=== PATIENT | male | born 1950 | race Caucasian/White ===

== ENCOUNTER 2020-07-21 19:55 | Inpatient (IN) | payer MEDICARE, MEDICAID ==
[~2020-07-21] VITALS: Ht 154.9 cm; Wt 68.0 kg
[2020-07-21] MEDS ORDERED: MORPHINE SULFATE 4 MG/ML CPJ (NOT FOR IM USE) IV STA (20:37)
[2020-07-21 21:10] LABS: BASOPHILS % 0.3 % (0.0-2.0); HEMATOCRIT. 42.8 % (42.0-52.0); HEMOGLOBIN. 14.8 g/dL (14.0-18.0); LYMPHOCYTES % 15.3 % (20.0-50.0); MEAN CORPUSCULAR HEMOGLOBIN 28.9 pg (28.0-32.0); MEAN CORPUSCULAR VOLUME 83.6 fL (80.0-94.0); MEAN PLATELET VOLUME 9.7 fl (7.4-10.4); MONOCYTES % 5.1 % (2.0-8.0); NEUTROPHILS % 79.3 % (40.0-76.0); PLATELET 167 x1000/uL (130-400); RED BLOOD CELL COUNT 5.13 mill/uL (4.7-6.1); RED CELL DISTRIBUTION WIDTH 14.8 % (11.6-14.6)
[2020-07-21 21:24] LABS: CHLORIDE 107 mEq/L (98-107)
[2020-07-21] MEDS ORDERED: IOHEXOL-300 100 ML BOTTLE ONE (22:58)
[2020-07-21] MEDS ORDERED: KCL 20MEQ/100ML PREMIX 100 ML IV ONE (23:15)
[2020-07-21] MEDS ORDERED: MORPHINE SULFATE 4 MG/ML CPJ (NOT FOR IM USE) IV ONE (23:15)
[2020-07-21] MEDS ORDERED: CEFTRIAXONE 1 G PREMIX 50 ML IV ONE (23:15)
[2020-07-22 00:06] LABS: CLARITY URINE CLEAR (CLEAR); COLOR URINE YELLOW (YELLOW); KETONES URINE NEGATIVE (NEGATIVE); LEUKOCYTE ESTERASE URINE 3+ (NEGATIVE); NITRITE URINE NEGATIVE (NEGATIVE); OCCULT BLOOD URINE 1+ (NEGATIVE); PROTEIN URINE NEGATIVE (NEGATIVE); SPECIFIC GRAVITY URINE 1.019 (1.005-1.030); UROBILINOGEN URINE 0.2 E.U./dL (0.2-1.0)
[2020-07-22] MEDS ORDERED: ZOLPIDEM TARTRATE 5MG TABLET PO PRN (02:15)
[2020-07-22] MEDS ORDERED: DIPHENHYDRAMINE 50MG/ML VIAL IV PRN (02:15)
[2020-07-22] MEDS ORDERED: CLONIDINE 0.1MG TABLET PO PRN (02:15)
[2020-07-22] MEDS ORDERED: CEFTRIAXONE 1 G PREMIX 50 ML IV SCH (02:15)
[2020-07-22] MEDS ORDERED: ACETAMINOPHEN 325MG TABLET PO PRN ×2 (02:15)
[2020-07-22] MEDS ORDERED: MAGNESIUM/ALUMINUM HYDROXIDE/SIMETHICONE 30ML UDC PO PRN (02:15)
[2020-07-22] MEDS ORDERED: ONDANSETRON HCL 4MG/2ML INJ IV PRN (02:15)
[2020-07-22] MEDS ORDERED: MORPHINE SULFATE 4 MG/ML CPJ (NOT FOR IM USE) IV PRN (02:15)
[2020-07-22] MEDS: KETOROLAC 30MG/ML VIAL IV PRN ×2 (07:38→23:37)
[2020-07-22 08:40] VITALS: BP 136/69
[2020-07-22] MEDS ORDERED: IOPAMIDOL 10 ML VIAL IT ONE (09:40)
[2020-07-22 10:45] VITALS: BP 136/69
[2020-07-22] MEDS: FAMOTIDINE 20MG/2ML VIAL IV SCH ×2 (11:40→23:46)
[2020-07-22 11:41] VITALS: BP 137/70
[2020-07-22] MEDS ORDERED: PNEUMOCOCCAL 23-VAL P-SAC VAC 0.5 ML IM ONE (12:15)
[2020-07-22] MEDS: CEFTRIAXONE 1,000 MG in DEXTROSE 5% WATER 50 ML IV SCH ×3 (14:00→18:55)
[2020-07-22] MEDS ORDERED: FENTANYL CITRATE/PF 50MCG/ML 2ML VIAL ONE (14:17)
[2020-07-22] MEDS ORDERED: PROPOFOL 200MG/20ML VIAL IV ONE (14:17)
[2020-07-22] MEDS ORDERED: MIDAZOLAM HCL 2 MG/2 ML VIAL ONE (14:18)
[2020-07-22] MEDS ORDERED: CEFAZOLIN SODIUM 1000MG/VIAL ONE (14:38)
[2020-07-22 20:00] VITALS: BP 138/80
[2020-07-22] MEDS ORDERED: CEFTRIAXONE 1,000 MG in DEXTROSE 5% WATER 50 ML IV SCH (21:00)
[2020-07-22] MEDS: SODIUM CHLORIDE 0.9% 1,000 ML IV SCH ×2 (23:00→23:46)
[2020-07-23] VITALS: BP 135/72
[2020-07-23] MEDS ORDERED: POTASSIUM CHLORIDE 20MEQ TABLET SR PO NR ×2 (01:00→15:01)
[2020-07-23] MEDS: SODIUM CHLORIDE 0.9% 1,000 ML IV SCH ×3 (01:16→19:00)
[2020-07-23] MEDS ORDERED: POTASSIUM CHLORIDE INJ 40 MEQ in DEXT 5% WATER 500 ML IV NR (02:00)
[2020-07-23 04:00] VITALS: BP 110/55
[2020-07-23 08:00] VITALS: BP 125/65
[2020-07-23] MEDS: FAMOTIDINE 20MG/2ML VIAL IV SCH (08:41)
[2020-07-23] MEDS: ENOXAPARIN 40MG/0.4ML SYR SUBCUT SCH (08:41)
[2020-07-23 12:00] VITALS: BP 130/76
[2020-07-23] MEDS: LEVOFLOXACIN 500MG PREMIX 100 ML IV SCH (13:00)
[2020-07-23 16:00] VITALS: BP 128/72
[2020-07-23 20:00] VITALS: BP 127/67
[2020-07-23] MEDS: FAMOTIDINE 20MG TABLET PO SCH (21:21)
[2020-07-24 00:04] VITALS: BP 139/66
[2020-07-24 04:00] VITALS: BP 131/64
[2020-07-24] MEDS: SODIUM CHLORIDE 0.9% 1,000 ML IV SCH (05:00)
[2020-07-24 07:11] LABS: BASOPHILS % 0.3 % (0.0-2.0); EOSINOPHILS % 2.5 % (0.0-5.0); HEMATOCRIT. 39.2 % (42.0-52.0); HEMOGLOBIN. 13.1 g/dL (14.0-18.0); LYMPHOCYTES % 26.5 % (20.0-50.0); MEAN CORPUSCULAR HEMOGLOBIN 28.6 pg (28.0-32.0); MEAN CORPUSCULAR VOLUME 85.6 fL (80.0-94.0); MEAN PLATELET VOLUME 10.3 fl (7.4-10.4); MONOCYTES % 7.9 % (2.0-8.0); NEUTROPHILS % 62.8 % (40.0-76.0); PLATELET 145 x1000/uL (130-400); RED BLOOD CELL COUNT 4.58 mill/uL (4.7-6.1); RED CELL DISTRIBUTION WIDTH 14.6 % (11.6-14.6)
[2020-07-24 08:00] VITALS: BP 165/80
[2020-07-24 09:13] LABS: CHLORIDE 111 mEq/L (98-107)
[2020-07-24] MEDS: FAMOTIDINE 20MG TABLET PO SCH (09:31)
[2020-07-24] MEDS: ENOXAPARIN 40MG/0.4ML SYR SUBCUT SCH (09:33)
[2020-07-24] MEDS ORDERED: POTASSIUM CHLORIDE 20MEQ TABLET SR PO SCH (10:00)
[2020-07-24 12:00] VITALS: BP 139/72
[2020-07-24] MEDS ORDERED: MAGNESIUM 1 G PREMIX 100 ML IV SCH (12:00)
[2020-07-24] MEDS: LEVOFLOXACIN 500MG PREMIX 100 ML IV SCH (12:05)
[2020-07-24] MEDS: CEFTRIAXONE 1,000 MG in DEXTROSE 5% WATER 50 ML IV SCH (14:56)
[2020-07-24 15:20] VITALS: BP 139/72
[2020-07-24 16:00] VITALS: BP 149/79
== END 2020-07-24 16:45 | disposition home or self-care (01) | DRG 854 ==
LOC: ER 19:55 → 6WST 07-22 00:07 → ENRESERV 07-22 07:15
PROVIDERS: ADMIT Internal Medicine; ATTEND Internal Medicine
PROC: 0TC68ZZ Extirpation of Matter from Right Ureter, Via Natural or Artificial Opening Endoscopic (ICD-10-PCS; principal; 2020-07-22)
PROC: 0T768DZ Dilation of Right Ureter with Intraluminal Device, Via Natural or Artificial Opening Endoscopic (ICD-10-PCS; 2020-07-22)
DX: A41.9 Sepsis, unspecified organism (principal); I69.351 Hemiplegia and hemiparesis following cerebral infarction affecting right dominant side; N13.6 Pyonephrosis; E87.6 Hypokalemia; I10 Essential (primary) hypertension; Z20.822 Contact with and (suspected) exposure to COVID-19; K42.9 Umbilical hernia without obstruction or gangrene; K76.0 Fatty (change of) liver, not elsewhere classified; K76.89 Other specified diseases of liver; N40.0 Benign prostatic hyperplasia without lower urinary tract symptoms
CPT/HCPCS: 36415; 74018; 74177; 76000; 80048; 80053; 81003; 83735; 84132; 85025; 87426; 90732; 93005; 99285; C1893; J0690; J0696; J1650; J1885; J1956; J2250; J2270; J2704; J3010; J3475; J3480; J3490; J7060; Q9966; Q9967